=== PATIENT | female | born 1985 | race Caucasian/White ===

== ENCOUNTER 2025-02-18 12:33 | Outpatient (CLI) | payer OTHER | END 2025-02-18 13:20 | disposition home or self-care (01) | LOC: NST 12:33 | PROVIDERS: ATTEND Obstetrics & Gynecology | DX: Z34.83 Encounter for supervision of other normal pregnancy, third trimester (principal) ==

== ENCOUNTER 2025-04-27 07:55 | Outpatient (CLI) | payer OTHER ==
[~2025-04-27] VITALS: Ht 152.4 cm; Wt 76.2 kg
[2025-04-27 06:38] VITALS: BP 119/63
[2025-04-27] MEDS ORDERED: RINGERS SOLUTION,LACTATED 1,000 ML IV SCH (08:15)
[2025-04-27] MEDS ORDERED: MORPHINE SULFATE 4 MG/ML CARTRIDGE IV PRN (08:15)
[2025-04-27 09:16] LABS: INR < 0.93
[2025-04-27 09:21] LABS: ALT/SGPT 17.0 U/L (12-78); AST/SGOT 15.0 U/L (15-37); BILIRUBIN TOTAL 0.29 mg/dL (0.3-1.2); BUN CREA RATIO 24.0 (7.0-25.0); CREATININE SERUM 0.49 mg/dL (0.55-1.02); GFR 139.17; GLOBULINA 3.8 G/DL (2.4-3.5); GLUCOSE FASTING 83.0 mg/dL (65-100); OSMOLALITY SERUM 278.0 MOSM/KG (275-295)
[2025-04-27 09:24] LABS: BASO % 0.3 % (0.1-1.2); EOS # 0.04 (0.04-0.54); EOS % 0.4 % (0.7-7.0); LYMPH # 2.19 (1.18-3.74); LYMPH % 21.6 % (19.3-53.1); MEAN PLATELET VOLUME 14.10 fl (9.4-12.4); MONO # 0.59 (0.24-0.82); MONO % 5.8 % (4.7-12.5); NEUT # 7.22 (1.56-6.13); NEUT % 71.1 % (34.0-71.1); RED CELL DISTRIBUTION WIDTH 13.9 % (11.6-14.4)
[2025-04-27] MEDS ORDERED: PRENATAL TABLE1 EAC1 (10:31)
== END 2025-04-27 10:15 | disposition home or self-care (01) ==
LOC: LDR 07:55 → OBS/DEL 07:55 → LDR 08:21 → OBS/DEL 10:15 → LDR 04-30 13:30 → EDSTATUS 04-30 13:30
PROVIDERS: ATTEND Obstetrics & Gynecology
DX: O47.9 False labor, unspecified (principal); Z3A.39 39 weeks gestation of pregnancy

== ENCOUNTER 2025-04-28 02:17 | Inpatient (IN) | payer OTHER ==
[~2025-04-28] VITALS: Ht 152.4 cm; Wt 76.2 kg
[2025-04-28 01:55] VITALS: BP 139/49
[~2025-04-28 02:17] MED LIST: PRENATAL TABLE1 EAC1
[2025-04-28] MEDS ORDERED: RINGERS SOLUTION,LACTATED 1,000 ML IV SCH (02:30)
[2025-04-28] MEDS ORDERED: ACETAMINOPHEN WITH CODEINE 1 UDTAB TABLET PO PRN (04:15)
[2025-04-28] MEDS ORDERED: CHLORHEXIDINE GLUCONATE 120 ML BOTTLE TP SCH (04:15)
[2025-04-28] MEDS ORDERED: OXYTOCIN 500 ML IV ONE (06:30)
[2025-04-28 07:16] VITALS: BP 115/61
[2025-04-28 10:24] VITALS: BP 153/78
[2025-04-28] MEDS ORDERED: OXYTOCIN 1,000 ML IV SCH (12:00)
[2025-04-28] MEDS ORDERED: MORPHINE SULFATE 4 MG/ML CARTRIDGE IV PRN (12:00)
[2025-04-28] MEDS ORDERED: OxyCODONE HCL 5 MG TABLET (ROXICODONE) PO PRN (15:00)
[2025-04-28 16:09] VITALS: BP 125/66
[2025-04-29 09:25] VITALS: BP 108/74
[2025-04-29 11:01] LABS: BASO % 0.3 % (0.1-1.2); EOS # 0.02 (0.04-0.54); EOS % 0.2 % (0.7-7.0); LYMPH # 1.99 (1.18-3.74); LYMPH % 17.6 % (19.3-53.1); MEAN PLATELET VOLUME 13.50 fl (9.4-12.4); MONO # 0.47 (0.24-0.82); MONO % 4.2 % (4.7-12.5); NEUT # 8.69 (1.56-6.13); NEUT % 77.0 % (34.0-71.1); RED CELL DISTRIBUTION WIDTH 14.6 % (11.6-14.4)
[2025-04-29 16:05] VITALS: BP 125/76
[2025-04-29] MEDS ORDERED: MAGNESIUM HYDROXIDE 30 ML BLIST.PACK PO NR (16:30)
[2025-04-29] MEDS ORDERED: SIMETHICONE 125 MG CAPSULE PO SCH (17:00)
[2025-04-30] VITALS: BP 117/65
[2025-04-30 08:12] VITALS: BP 110/71
== END 2025-04-30 11:09 | disposition home or self-care (01) | DRG 788 ==
LOC: OB/GYN 02:17 → LDR 02:17 → OB/GYN 14:46
PROVIDERS: ADMIT Obstetrics & Gynecology; ATTEND Obstetrics & Gynecology
PROC: 4A1HXCZ Monitoring of Products of Conception, Cardiac Rate, External Approach (ICD-10-PCS; 2025-04-28)
PROC: 10D00Z1 Extraction of Products of Conception, Low, Open Approach (ICD-10-PCS; principal; 2025-04-28 10:00)
DX: O82 Encounter for cesarean delivery without indication (principal); Z3A.39 39 weeks gestation of pregnancy; Z37.0 Single live birth